=== PATIENT | male | born 1975 | race Caucasian/White ===

== ENCOUNTER 2016-11-11 15:47 | Emergency (ER) | payer MEDICARE ==
--- NOTE | 2016-11-11 17:15 | UC ---
Abdominal Pain Male HPI - HPI Summary HPI Summary: The patient comes in today for: 1. Abdominal pain: Onset: 2 hours Palliative/provocative: Laying back makes it worse. Nothing makes it better. Movement makes it worse. Quality: Ache and sometimes sharp. Region: LRQ. Severity: 7/10 Time: Comes and goes. Associated symptoms: Fevers/chills: None. Diarrhea: None. Last BM: This am--normal--no blood. Appendix: He has. Nauseated: Present. Dizzy (near syncope): * - History of Current Complaint Chief Complaint: UCAbdominalPain Stated Complaint: ABD PAIN Time Seen by Provider: 11/11/16 17:09 Hx Obtained From: Patient, Family/Drum Worker - Allergies/Home Medications Allergies/Adverse Reactions: Allergies Allergy/AdvReac Type Severity Reaction Status Date / Time No Known Allergies Allergy Verified 11/11/16 16:34 Home Medications: Home Medications Carbamazepine [Tegretol-Xr] 500 mg PO BID 11/11/16 [History Confirmed 11/11/16] Carvedilol TAB* [Coreg TAB*] 1 tab PO DAILY 11/11/16 [History Confirmed 11/11/16 ] Hydrochlorothiazide TAB* [Hydrodiuril TAB*] 20 mg PO DAILY 11/11/16 [History Confirmed 11/11/16] PMH/Surg Hx/FS Hx/Imm Hx Previously Healthy: No Endocrine History Of: Denies: Diabetes, Thyroid Disease, Hyperthyroidism, Hypothyroidism, Dyslipidemia Cardiovascular History Of: Reports: Hypertension Denies: Cardiac Disorders, Pacemaker/ICD, Myocardial Infarction, Congestive Heart Failure, Atrial Fibrillation, Deep Vein Thrombosis, Bleeding Disorders Respiratory History Of: Denies: COPD, Asthma, Bronchitis, Pneumonia, Pulmonary Embolism GI/ History Of: Denies: Gastroesophageal Reflux, Ulcer, Gastrointestinal Bleed, Gall Bladder Disease, Kidney Stones, Diverticulitis, Renal Disease, Urosepsis Neurological History Of: Reports: Seizures Denies: TIA, CVA, Dementia, Migraine Psychological History Of: Denies: Anxiety, Depression, Bipolar Disorder, Schizophrenia, Post Traumatic Stress Disorder Cancer History Of: Denies: Lung Cancer, Colorectal Cancer, Breast Cancer, Prostate Cancer, Cervical Cancer Other History Of: Negative For: HIV, Hepatitis B, Hepatitis C, Anticoagulant Therapy - Surgical History Surgical History: Yes Surgery Procedure, Year, and Place: BILATERAL FEET SURGERIES TO STRAIGHTEN OUT FEET. LEFT EAR SURGERY REMOVED EAR DRUM - Family History Known Family History: Positive: Cardiac Disease, Hypertension - Social History Occupation: Unemployed Alcohol Use: None Substance Use Type: None Smoking Status (MU): Never Smoked Tobacco Review of Systems Constitutional: Negative Skin: Negative Eyes: Negative ENT: Negative Respiratory: Negative Cardiovascular: Negative Gastrointestinal: Abdominal Pain Genitourinary: Negative All Other Systems Reviewed And Are Negative: Yes Physical Exam Triage Information Reviewed: Yes Appearance: Well-Appearing - At rest., No Pain Distress - At rest., Well- Nourished Vital Signs: Initial Vital Signs Temp 99.5 F 11/11/16 16:36 Pulse 83 11/11/16 16:36 Resp 16 11/11/16 16:36 BP 108/66 11/11/16 16:36 Pulse Ox 100 11/11/16 16:36 Vital Signs Reviewed: Yes Eyes: Positive: Conjunctiva Clear. Negative: Discharge ENT: Positive: Hearing grossly normal. Negative: Pharyngeal erythema, Nasal congestion, Nasal drainage, TM bulging, TM dull, TM red, Tonsillar swelling, Tonsillar exudate Dental: Negative: Gross Decay/Caries @, Dental Fracture @ Neck: Positive: Supple, Nontender, No Lymphadenopathy. Negative: Nuchal Rigidity Respiratory: Positive: Lungs clear, No respiratory distress, No accessory muscle use. Negative: Rhonchi, Wheezing Cardiovascular: Positive: RRR, No Murmur Abdomen Description: Positive: No Organomegaly, Guarding, McBurney's Point Tenderness, Peritoneal Signs. Negative: Nontender - He has tenderness of the LLQ and the RLQ with the worse pain in the RLQ. There is rebound and percussion tenderness. There is no psoas sign. Possible guarding? Bowel Sounds: Positive: Present Musculoskeletal: Positive: Strength Intact, ROM Intact, No Edema Neurological: Positive: Alert, Muscle Tone Normal Psychological: Positive: Age Appropriate Behavior, Consolable Skin: Negative: rashes, breakdown Abd Pain Male Course/Dx - Course Course Of Treatment: Patient and family were told that he may have appendicitis and my recommendation was to go to the ER. The patient and the family agreed. - Differential Dx/Clinical Impression Provider Diagnoses: Abdominal pain (RLQ) possible appendicitis. - Physician Notification/Consults Discussed Patient Care With: Destiny Duque Time Discussed With Above Provider: 17:33 Discharge - Discharge Plan Condition: Stable Disposition: AGAINST MEDICAL ADVICE Additional Instructions: Please go directly to the [facility].
[2016-11-11 18:01] VITALS: BP 118/90
== END 2016-11-11 17:40 | disposition left against medical advice (07) ==
LOC: UCEAST 15:47
DX: R10.31 Right lower quadrant pain (principal); I10 Essential (primary) hypertension; G40.909 Epilepsy, unspecified, not intractable, without status epilepticus
CPT/HCPCS: 99212; G0463

== ENCOUNTER 2016-11-11 18:01 | Inpatient (IN) | payer MEDICARE ==
[2016-11-11] MEDS ORDERED: Ondansetron INJ* 2 MG/ML VIAL IV ONE (20:58)
[2016-11-11] MEDS ORDERED: Morphine INJ* 4 MG/ML 1 ML SYRINGE IV ONE (20:58)
[2016-11-11] MEDS ORDERED: NS 0.9% 1000 ML* 1,000 ML IV ONE (20:58)
[2016-11-11 22:02] LABS: Hematocrit 48 % (42-52); Hemoglobin 16.1 g/dl (14.0-18.0); Mean Corpuscular HGB Conc 34 g/dl (31-36); Mean Corpuscular Hemoglobin 31 pg (27-31); Mean Corpuscular Volume 91 fL (80-94); Mean Platelet Volume 8 um3 (7.4-10.4); Red Blood Count 5.25 10^6/ul (4.0-5.4); Red Cell Distribution Width 13 % (10.5-15); White Blood Count 16.2 10^3/ul (3.5-10.8)
[2016-11-11 22:17] LABS: Albumin 4.4 g/dL (3.2-5.2); BUN/Creatinine Ratio 15.3 (8-20); C Reactive Protein 15.66 mg/L (< 5.00); Calcium 9.5 mg/dL (8.6-10.3); EGFR African American 94.4 (>60); EGFR Non-African American 73.4 (>60); Globulin 3.1 g/dL (2-4); Potassium 3.7 mmol/L (3.5-5.0); Total Bilirubin 0.8 mg/dL (0.2-1.0); Total Protein 7.5 g/dL (6.4-8.9)
[2016-11-11] MEDS ORDERED: Iohexol 300* (CONTRAST) 10 ML SDV IV ONE (22:23)
[2016-11-11 22:29] LABS: Urine Bacteria Absent (Absent); Urine Bilirubin 1+ (Negative); Urine Glucose Negative (Negative); Urine Nitrite Negative (Negative)
--- NOTE | 2016-11-12 00:20 | ED ---
Anthony Castañeda Michael, scribed for Abe Orr MD on 11/11/16 at 2059 . Abdominal Pain/Male - HPI Summary HPI Summary: 41 y/o male was referred to the ED by [facility] for intermittent episodes of RLQ pain that started at 1500 today. He describes the abd pain as aching and sharp. The pt states that the abd pain is aggravated with palpation and alleviated by nothing. The PMHx is significant for sz. The pt is prescribed Tegretol. - History of Current Complaint Chief Complaint: EDAbdPain Stated Complaint: LOWER RIGHT ABD PAIN, FEVER, COMMING FROM [facility] Time Seen by Provider: 11/11/16 20:49 Hx Obtained From: Patient, Medical Records Onset/Duration: Lasting Hours, Still Present Timing: Intermittent Severity Initially: Moderate Severity Currently: Moderate Pain Intensity: 5 Pain Scale Used: 0-10 Numeric Location: Discrete At: RLQ Radiates: No Character: Sharp, Other: - ache Aggravating Factor(s): Other: - palpation Alleviating Factor(s): Nothing Associated Signs And Symptoms: Positive: Other - abd pain - Allergies/Home Medications Allergies/Adverse Reactions: Allergies Allergy/AdvReac Type Severity Reaction Status Date / Time No Known Allergies Allergy Verified 11/11/16 16:34 PMH/Surg Hx/FS Hx/Imm Hx Endocrine/Hematology History: Denies: Hx Anticoagulant Therapy, Hx Diabetes, Hx Thyroid Disease Cardiovascular History: Reports: Hx Hypertension Denies: Hx Congestive Heart Failure, Hx Deep Vein Thrombosis, Hx Myocardial Infarction, Hx Pacemaker/ICD Respiratory History: Denies: Hx Asthma, Hx Chronic Obstructive Pulmonary Disease (COPD), Hx Lung Cancer, Hx Pneumonia, Hx Pulmonary Embolism GI History: Denies: Hx Gall Bladder Disease, Hx Gastrointestinal Bleed, Hx Ulcer, Hx Urosepsis History: Denies: Hx Kidney Stones, Hx Renal Disease Sensory History: Denies: Hx Hearing Aid Neurological History: Reports: Hx Seizures Denies: Hx Dementia, Hx Migraine, Hx Transient Ischemic Attacks (TIA) Psychiatric History: Denies: Hx Anxiety, Hx Depression, Hx Panic Disorder, Hx Schizophrenia, Hx Bipolar Disorder - Surgical History Surgery Procedure, Year, and Place: BILATERAL FEET SURGERIES TO STRAIGHTEN OUT FEET. LEFT EAR SURGERY REMOVED EAR DRUM Infectious Disease History: No Infectious Disease History: Denies: Traveled Outside the [place] in Last 30 Days - Family History Known Family History: Positive: Cardiac Disease, Hypertension - Social History Occupation: Disabled Lives: With Family Alcohol Use: None Substance Use Type: Reports: None Smoking Status (MU): Never Smoked Tobacco Review of Systems Positive: Fever Positive: Abdominal Pain All Other Systems Reviewed And Are Negative: Yes Physical Exam Triage Information Reviewed: Yes Vital Signs On Initial Exam: Initial Vitals Temp Pulse Resp BP Pulse Ox 100.5 F 101 18 108/61 100 11/11/16 18:06 11/11/16 18:06 11/11/16 18:06 11/11/16 18:06 11/11/16 18:06 Vital Signs Reviewed: Yes Appearance: Positive: Well-Appearing, Pain Distress - moderate discomfort Skin: Positive: Warm Head/Face: Positive: Normal Head/Face Inspection Eyes: Positive: Normal ENT: Positive: Hearing grossly normal Neck: Positive: Supple Respiratory/Lung Sounds: Positive: Breath Sounds Present Cardiovascular: Positive: RRR Abdomen Description: Positive: Soft, Guarding, McBurney's Point Tenderness Bowel Sounds: Positive: Present Musculoskeletal: Positive: Strength/ROM Intact Neurological: Positive: Sensory/Motor Intact, Alert, Oriented to Person Place, Time Diagnostics - Vital Signs Vital Signs Temp Pulse Resp BP Pulse Ox 11/11/16 19:10 97.0 F 80 16 102/69 98 11/11/16 18:06 100.5 F 101 18 108/61 100 - Laboratory Lab Results: Lab Results 11/11/16 11/11/16 11/11/16 Range/Units 21:55 21:55 21:55 WBC 16.2 H (3.5-10.8) 10^3/ul RBC 5.25 (4.0-5.4) 10^6/ul Hgb 16.1 (14.0-18.0) g/dl Hct 48 (42-52) % MCV 91 (80-94) fL MCH 31 (27-31) pg MCHC 34 (31-36) g/dl RDW 13 (10.5-15) % Plt Count 202 (150-450) 10^3/ul MPV 8 (7.4-10.4) um3 Neut % (Auto) 86.0 H (38-83) % Lymph % (Auto) 5.2 L (25-47) % [place] % (Auto) 8.4 (1-9) % Eos % (Auto) 0 (0-6) % Baso % (Auto) 0.4 (0-2) % Absolute Neuts (auto) 14.0 H (1.5-7.7) 10^3/ul Absolute Lymphs (auto) 0.8 L (1.0-4.8) 10^3/ul Absolute Monos (auto) 1.4 H (0-0.8) 10^3/ul Absolute Eos (auto) 0 (0-0.6) 10^3/ul Absolute Basos (auto) 0.1 (0-0.2) 10^3/ul Absolute Nucleated RBC 0.01 10^3/ul Nucleated RBC % 0 Sodium 137 (133-145) mmol/L Potassium 3.7 (3.5-5.0) mmol/L Chloride 102 (101-111) mmol/L Carbon Dioxide 24 (22-32) mmol/L Anion Gap 11 (2-11) mmol/L BUN 17 (6-24) mg/dL Creatinine 1.11 (0.67-1.17) mg/dL Est GFR ( Amer) 94.4 (>60) Est GFR (Non-Af Amer) 73.4 (>60) BUN/Creatinine Ratio 15.3 (8-20) Glucose 148 H (70-100) mg/dL Lactic Acid 3.3 H* (0.5-2.0) mmol/L Calcium 9.5 (8.6-10.3) mg/dL Total Bilirubin 0.80 (0.2-1.0) mg/dL AST 17 (13-39) U/L ALT 22 (7-52) U/L Alkaline Phosphatase 76 (34-104) U/L C-Reactive Protein 15.66 H (< 5.00) mg/L Total Protein 7.5 (6.4-8.9) g/dL Albumin 4.4 (3.2-5.2) g/dL Globulin 3.1 (2-4) g/dL Albumin/Globulin Ratio 1.4 (1-3) Lipase 14 (11.0-82.0) U/L Urine Color Urine Appearance Urine pH (5-9) Ur Specific [place] (1.010-1.030) Urine Protein (Negative) Urine Ketones (Negative) Urine Blood (Negative) Urine Nitrate (Negative) Urine Bilirubin (Negative) Urine Urobilinogen (Negative) Ur Leukocyte Esterase (Negative) Urine WBC (Auto) (Absent) Urine RBC (Auto) (Absent) Ur Squamous Epith Cells (Absent) Urine Bacteria (Absent) Urine Glucose (Negative) 11/11/16 Range/Units 22:15 WBC (3.5-10.8) 10^3/ul RBC (4.0-5.4) 10^6/ul Hgb (14.0-18.0) g/dl Hct (42-52) % MCV (80-94) fL MCH (27-31) pg MCHC (31-36) g/dl RDW (10.5-15) % Plt Count (150-450) 10^3/ul MPV (7.4-10.4) um3 Neut % (Auto) (38-83) % Lymph % (Auto) (25-47) % [place] % (Auto) (1-9) % Eos % (Auto) (0-6) % Baso % (Auto) (0-2) % Absolute Neuts (auto) (1.5-7.7) 10^3/ul Absolute Lymphs (auto) (1.0-4.8) 10^3/ul Absolute Monos (auto) (0-0.8) 10^3/ul Absolute Eos (auto) (0-0.6) 10^3/ul Absolute Basos (auto) (0-0.2) 10^3/ul Absolute Nucleated RBC 10^3/ul Nucleated RBC % Sodium (133-145) mmol/L Potassium (3.5-5.0) mmol/L Chloride (101-111) mmol/L Carbon Dioxide (22-32) mmol/L Anion Gap (2-11) mmol/L BUN (6-24) mg/dL Creatinine (0.67-1.17) mg/dL Est GFR ( Amer) (>60) Est GFR (Non-Af Amer) (>60) BUN/Creatinine Ratio (8-20) Glucose (70-100) mg/dL Lactic Acid (0.5-2.0) mmol/L Calcium (8.6-10.3) mg/dL Total Bilirubin (0.2-1.0) mg/dL AST (13-39) U/L ALT (7-52) U/L Alkaline Phosphatase (34-104) U/L C-Reactive Protein (< 5.00) mg/L Total Protein (6.4-8.9) g/dL Albumin (3.2-5.2) g/dL Globulin (2-4) g/dL Albumin/Globulin Ratio (1-3) Lipase (11.0-82.0) U/L Urine Color [place] Urine Appearance Cloudy Urine pH 5.0 (5-9) Ur Specific [place] 1.028 (1.010-1.030) Urine Protein 1+(30 mg/dl) H (Negative) Urine Ketones Negative (Negative) Urine Blood Negative (Negative) Urine Nitrate Negative (Negative) Urine Bilirubin 1+ (Negative) Urine Urobilinogen Positive H (Negative) Ur Leukocyte Esterase Negative (Negative) Urine WBC (Auto) Trace(0-5/hpf) (Absent) Urine RBC (Auto) 1+(3-5/hpf) H (Absent) Ur Squamous Epith Cells Present H (Absent) Urine Bacteria Absent (Absent) Urine Glucose Negative (Negative) Result Diagrams: 11/11/16 21:55 11/11/16 21:55 Lab Statement: Any lab studies that have been ordered have been reviewed, and results considered in the medical decision making process. - CT CT ABD/PEL CT Interpretation: Positive (See Comments) - 11 mm diameter thick-walled appendix with periappendiceal fat inflammation, compatible with acute appendicitis. Small complex free fluid lower pelvis, probablyinflammatory. No abscess or free air. Cortical scarring lower poles bilateral kidneys and small calcification on left. Gastroesophageal reflux. CT Interpretation Completed By: Radiologist Abdominal Pain Fem Course/Dx - Course Course Of Treatment: Discussed patient care with Dr. Jordan (Surgery) at [address] ABD/PEL results. Dr. Jordan accepts the patient as an admission. - Diagnoses Provider Diagnoses: Acute appendicitis Discharge - Discharge Plan Condition: Fair Disposition: ADMITTED TO [facility] documentation as recorded by the Anthony cisneros Michael accurately reflects the service I personally performed and the decisions made by me, Abe Orr MD.
[2016-11-12] MEDS ORDERED: NS 0.9% 1000 ML* 1,000 ML IV ONE ×2 (01:14→01:15)
[2016-11-12] MEDS: Acetaminophen TAB* 325 MG PO PRN (01:26)
[2016-11-12] MEDS ORDERED: Piperac/Tazob 3.375 gm in NS* 3.375 GM/100 ML BAG IVPB SCH ×2 (01:30→02:00)
[2016-11-12] MEDS ORDERED: ZOSYN 3.375 GM ONE TIME DOSE-OVER 30 MINUTES IVPB (02:00)
[2016-11-12] MEDS: HYDROmorphone* 1 MG/ML 1 ML SYR IV PRN ×2 (03:04→11:06)
[2016-11-12] MEDS: NS 0.9% 1000 ML* 1,000 ML IV SCH ×3 (03:26→20:52)
[2016-11-12] MEDS ORDERED: Bupivacaine 0.25% EPI 200,000* 30 ML SDV ONE (05:38)
[2016-11-12] MEDS: Piperac/Tazob 3.375 gm in NS* 3.375 GM/100 ML BAG IVPB SCH ×3 (05:51→22:11)
[2016-11-12] MEDS ORDERED: fentaNYL* 50 MCG/ML 2 ML VIAL (100 MCG VIAL) ONE (05:55)
[2016-11-12] MEDS ORDERED: Midazolam* 1 MG/ML 2 ML VIAL (2 MG) ONE (05:55)
[2016-11-12] MEDS ORDERED: KETAMINE HCL* 50 MG/ML 10 ML VIAL ONE (05:55)
[2016-11-12] MEDS ORDERED: carBAMazepine ER TAB(*) 100 MG PO ONE (06:00)
[2016-11-12] MEDS ORDERED: Ondansetron INJ* 2 MG/ML VIAL ONE (06:36)
[2016-11-12] MEDS ORDERED: Dexamethasone IV* 4 MG/ML 1 ML (4 MG) ONE (06:36)
[2016-11-12] MEDS ORDERED: Rocuronium* 10 MG/ML VIAL ONE (06:36)
[2016-11-12] MEDS ORDERED: Ketorolac INJ* 30 MG/ML 1 ML VIAL ONE (06:36)
[2016-11-12] MEDS ORDERED: Glycopyrrolate IV* 0.2 MG/ML 1 ML VIAL ONE (07:07)
[2016-11-12] MEDS ORDERED: Neostigmine Methylsulfate* 2 MG/2 ML SYRINGE ONE (07:07)
--- NOTE | 2016-11-12 07:50 | RAD ---
CLINICAL HISTORY: Right lower quadrant pain COMPARISON: None TECHNIQUE: Contrast enhanced CT examination of the abdomen and pelvis from the lung bases through the initial tuberosities. The patient received 97 mL Omnipaque 300 intravenously prior to imaging.The patient received oral contrast as well prior to imaging. FINDINGS: VISUALIZED LUNG BASES: There are bibasilar hypoventilatory changes. There is no pleural effusion. ABDOMEN AND PELVIS: The liver, spleen, pancreas and adrenal glands are grossly normal in appearance. The gallbladder is normal. The kidneys are normal in appearance without focal mass, calcification or signs of hydronephrosis. Total contrast has progressed as far as the midportion small bowel. The small and large bowel are not distended. The appendix measures 11 mm in diameter. There is moderate periappendiceal inflammatory change including stranding of the surrounding mesenteric fat. There is no free air or drainable fluid collection. There is no gross retroperitoneal or mesenteric lymphadenopathy. The pelvic viscera is normal in appearance. There is trace ascites in the dependent portion of the pelvis The abdominal aorta and iliac arteries are normal in course and diameter. Degenerative changes include multilevel loss of intervertebral disc height involving the lower thoracic and lumbar spine.There are no sinister bone lesions. IMPRESSION: CT findings are compatible with acute appendicitis.
--- NOTE | 2016-11-12 07:54 | SURGPN ---
Brief Operative Note - Surgery Procedures: Procedures ) OPERATIVE REPORT PRE-OP: Acute appendicitis POST-OP: Acute perforated appendicitis with purulent peritonitis PROCEDURE: laparoscopic appendectomy SURGEON: MD Julian ANESTHESIA: General with Dr. Fu ASST: none IVF: 1.5 l crystalloid EBL: min SPECIMEN: appendix DRAIN: #10 [place] WOUND CLASS: 4 COMPLICATIONS: none TO PACU
[2016-11-12] MEDS ORDERED: HYDROmorphone* 1 MG/ML 1 ML SYR IV PRN (08:09)
[2016-11-12] MEDS ORDERED: DiMENhydriNATE IV* 50 MG/ML VIAL IV PUSH PRN (08:09)
[2016-11-12] MEDS ORDERED: fentaNYL* 50 MCG/ML 2 ML VIAL (100 MCG VIAL) IV PRN (08:09)
--- NOTE | 2016-11-12 08:41 | HP ---
HISTORY AND PHYSICAL DATE OF ADMISSION: 11/12/16 CHIEF COMPLAINT: Right lower quadrant abdominal pain. HISTORY OF PRESENT ILLNESS: Mr. Rodrigue Torres is a 41-year-old gentleman who, yesterday during the day, developed some generalized abdominal discomfort that became quite severe in the right lower quadrant after several hours. He initially presented to the urgent care center. He was referred to the emergency room here at [facility] with concern for acute appendicitis. He have been anorexic after his discomfort started, although he did eat a normal lunch. He had no diarrhea, slight nausea, but no vomiting. He had had no fevers, shakes, or chills. When seen in the emergency room, he did have a mildly elevated heart rate and temperature. He was noted to have tenderness in the right side of the abdomen. White blood cell count returned at 16,000 and he had an elevated lactic acid 3.3 with C-reactive protein at 15.66. Remainder of his chemistry labs were unremarkable. He underwent a CT scan of the abdomen and pelvis. I did review these images. It shows a thickened, distended appendix over a centimeter with some periappendiceal fat inflammation, all consistent with acute appendicitis. There was some free intra-abdominal fluid. There was no evidence of extraluminal air or abscess to suggest perforation. He was admitted to the surgical service with plan for appendectomy. PAST MEDICAL HISTORY: 1. Seizure disorder. 2. Hypertension. PAST SURGICAL HISTORY: Lower extremity ankle and foot surgery. ALLERGIES: He has no known drug allergies. SOCIAL HISTORY: He lives with his significant other. He does not use tobacco or alcohol. He works part-time in a local [employer]. REVIEW OF SYSTEMS: Cerebrovascular: There is no dizziness or visual disturbances. Cardiovascular: No chest pain or shortness of breath. Neurologic : He does have a seizure disorder followed by Dr. Brown. His last seizure was 18 years ago. : No urgency or hematuria. GI: No chronic abdominal discomfort. PHYSICAL EXAMINATION GENERAL: A well-developed, well-nourished, but slender male who appears to be in no apparent distress. He is awake, alert and conversive. VITAL SIGNS: Temperature 99.6, pulse 118, blood pressure 103/69. HEENT: Sclerae is anicteric. Trachea was midline. Oral mucosa was slightly dry. LUNGS: Clear to auscultation with normal respiratory effort. HEART: Without regular rate and rhythm without murmurs, rubs, or gallops. ABDOMEN: Soft and distended, and somewhat firm and tympanitic. No prior surgical incision. Diminished bowel sounds throughout. There is no hernia noted. He has tenderness in the right lower quadrant with localized rebound and guarding, distal peritoneal irritation. PSYCHIATRIC: He is awake, alert and oriented x3. He appears to have normal judgment and insight. IMPRESSION: Acute appendicitis. PLAN: Laparoscopic appendectomy today. I discussed the findings of his history and physical exam, CT scan, laboratory workup, and treatment of acute appendicitis. I do recommend that we proceed with an operative intervention, although we did discuss nonoperative management with IV antibiotics and prolonged hospital stay with the understanding that this may not be efficacious. It is not recommended here in the [place] at this time. We have agreed to proceed with the surgical appendectomy. The procedure was discussed and the risks are but not limited to bleeding, infection, intra-abdominal abscess formation, injury to peritoneal and retroperitoneal structures, the possibility of an open procedure, risks of general anesthesia, increased risk of seizures in the perianesthetic procedure were discussed, hospital stay recovery times were all explained. He will receive his antiseizure medicine just prior to surgery today on schedule , although he did miss one dose in the emergency room yesterday, and we will proceed today. CC: [facility]; Dr. Chandu Dumont * Dr. Mona Brown, Neurology [id number]/[facility] #: [id number] MTDD
[2016-11-12] MEDS: Pantoprazole IV* 40 MG IV SCH (09:41)
[2016-11-12] MEDS: Carvedilol TAB* 6.25 MG PO SCH (09:42)
[2016-11-12] MEDS: Ketorolac INJ* 30 MG/ML 1 ML VIAL IV PUSH PRN ×2 (10:16→19:16)
[2016-11-12] MEDS: Ondansetron INJ* 2 MG/ML VIAL IV PRN (10:17)
[2016-11-12 11:29] LABS: Hematocrit 43 % (42-52); Hemoglobin 14.3 g/dl (14.0-18.0); Mean Corpuscular HGB Conc 33 g/dl (31-36); Mean Corpuscular Hemoglobin 31 pg (27-31); Mean Corpuscular Volume 92 fL (80-94); Mean Platelet Volume 8 um3 (7.4-10.4); Red Blood Count 4.69 10^6/ul (4.0-5.4); Red Cell Distribution Width 14 % (10.5-15); White Blood Count 12.1 10^3/ul (3.5-10.8)
[2016-11-12 11:45] LABS: BUN/Creatinine Ratio 12.5 (8-20); EGFR African American 93.4 (>60); EGFR Non-African American 72.6 (>60); Potassium 3.8 mmol/L (3.5-5.0)
[2016-11-12] MEDS: Heparin VIAL(*) 5000 UNITS/ML VIAL (FIVE THOUSAND) SUBCUT SCH ×2 (13:29→22:09)
[2016-11-12] MEDS: carBAMazepine ER TAB(*) 100 MG PO SCH (20:56)
--- NOTE | 2016-11-12 23:23 | OP ---
DATE OF OPERATION: 11/12/16 - ROOM #334 DATE OF : 77 SURGEON: Elpidio Jordan MD GAUGE MACHINE OPERATOR: None. ANESTHESIOLOGIST: Dr. Fu. ANESTHESIA: General with local. PRE-OP DIAGNOSIS: Acute appendicitis. POST-OP DIAGNOSIS: Acute suppurative appendicitis with perforation and purulent peritonitis. OPERATIVE PROCEDURE: Laparoscopic appendectomy. ESTIMATED BLOOD LOSS: Minimal. SPECIMEN: Appendix. WOUND CLASSIFICATION: IV. DRAINS: #10 [place] drain in right lower quadrant. COMPLICATIONS: None. DESCRIPTION OF PROCEDURE: Written informed consent was obtained, the abdomen was marked with indelible ink and preoperative antibiotics were administered. The patient was taken to the operating room, placed in the supine position. Sequential compression devices and warming blanket were applied. General anesthesia was administered and the abdomen was prepped and draped in the usual sterile fashion. Time-out verification was completed. Initially, a small transverse incision was made just above the umbilicus and the peritoneal cavity was entered under direct vision and a 12-mm blunt port was inserted into the abdominal cavity and it was insufflated to 15 mmHg. It was obvious upon placing this port that there was pus in all 4 quadrants of the abdomen with inflammation of the peritoneum and several loops of small bowel in the right lower quadrant, they were adherent to each other as well as the anterior abdominal wall and the underlying cecum. A 5-mm port was placed in the suprapubic position, a second 5-mm port was placed in the left lower abdominal wall. With care, the abdomen was irrigated in all 4 quadrants with copious amounts of saline. I was able to peel the inflamed loops of small bowel off the right lower quadrant and break up some fibrinous adhesions. I was able to identify the appendix and the lateral gutter where the distal half was acutely suppuratively inflamed and when I grasped the tip of the appendix and brought up into view, there was a pocket of pus, which was not a true abscess, but it had been walled off by the fat of the terminal ileum and this was suctioned. I noted no hole in the appendix but it was apparent that perforation had occured. I noted no appendicoliths within the lumen. The distal half of the appendix was quite friable. Mesoappendix was also edematous. This was the obvious source of the peritonitis. The mesoappendix was then taken sequentially from distal to proximal and fortunately, the proximal third of the appendix appeared to be of normal caliber without evidence of acute inflammation and I followed this down to the cecal base. There were some lateral peritoneal attachments, which I divided to improve exposure at this point and I used a trejo load of a 45- mm stapler to divide the appendix and the base of the cecum which also was normal, and placed this in an Endo Catch bag and brought it out through the umbilical incision. The staple line was intact without evidence of bleeding. Hemostasis was assured in the right lower quadrant. There was still turbid fluid in the pelvis and I used copious amounts of saline to irrigate this area and separate the bowel loops especially in the terminal ileum area. Due to the amount of fluid left behind, I did place a #10 [place] drain through a separate stab wound in the right lower quadrant, placed this into the right lower quadrant extending down in the pelvis internally. This was sutured to the skin with 3-0 Prolene suture. Once I had aspirated as much of the irrigation fluid as possible, all ports removed under direct vision of the camera. The umbilical fascia was closed with interrupted 0 Polysorb suture. The skin at all 3 incisions was approximated with subcuticular 4-0 Polysorb suture. Steri-Strips and sterile dressings were applied. The patient tolerated the procedure well and was taken to the recovery room in stable condition. CC: [facility]; Ze Andrea* [id number]/[facility] #: [id number] [facility]ITAL[facility]
[2016-11-13] MEDS: Acetaminophen TAB* 325 MG PO PRN (00:44)
[2016-11-13] MEDS: Ondansetron INJ* 2 MG/ML VIAL IV PRN ×2 (01:49→05:47)
[2016-11-13] MEDS ORDERED: PROCHLORPERAZINE INJ 5 MG/ML 2 ML VIAL IV PRN (03:18)
[2016-11-13] MEDS: Heparin VIAL(*) 5000 UNITS/ML VIAL (FIVE THOUSAND) SUBCUT SCH ×3 (05:45→22:22)
[2016-11-13] MEDS: Piperac/Tazob 3.375 gm in NS* 3.375 GM/100 ML BAG IVPB SCH ×3 (05:54→22:46)
[2016-11-13] MEDS: HYDROmorphone* 1 MG/ML 1 ML SYR IV PRN (07:31)
[2016-11-13] MEDS: Ketorolac INJ* 30 MG/ML 1 ML VIAL IV PUSH PRN (07:32)
--- NOTE | 2016-11-13 08:06 | RAD ---
INDICATION: Dyspnea COMPARISON: CT abdomen pelvis dated November 11, 2016 that includes imaging of the lung bases. TECHNIQUE: Single AP portable view of the chest was obtained. FINDINGS: Image quality is compromised due to the relative inferiority of a portable chest x-ray. A gastric tube is seen with the tip terminating overlying the gastric fundus below the diaphragm. Poor inspiratory effort yields the appearance of low lung volumes. There is linear density at the right lung base contiguous with density obscuring the right lung base and right hemidiaphragm. To a lesser extent there is density obscuring the lateral left hemidiaphragm and causing left costophrenic angle blunting. More superiorly the lungs appear adequately aerated. IMPRESSION: 1. Appropriately positioned gastric tube in the AP projection. 2. Right greater than left lung base density and costophrenic angle blunting could be due to consolidation (atelectasis if the patient is postsurgical) and/or pleural effusion.
--- NOTE | 2016-11-13 08:21 | PN ---
Progress Note - Progress Note SOAP: Subjective: Developed nausea and vomiting last night, NGT inserted-anxious after insertion but feeling better now in chair. Developed some tachycardia and tachypnea after NGT placement, now improving. He is having minimal pain Urinating without problem No CP or SOB Objective: Temp Pulse Resp BP Pulse Ox 98.9 F 117 20 134/75 94 11/13/16 07:10 11/13/16 07:10 11/13/16 08:05 11/13/16 07:10 11/13/16 08:05 Intake & Output 11/11/16 11/12/16 11/13/16 11/14/16 06:59 06:59 06:59 06:59 Intake Total 2104 3637 Output Total 150 1605 Balance 1954 2031 Weight 160 lb Intake: IV Fluids 2104 2327 ABX - PIPERACILLIN 105 ABX - ZOSYN 255 Compazine 50 LR 550 NS 500 NS (0.9%) 972 Oral 0 1310 Output: NG Tube Drainage Amount 300 KY #1 230 Urine 150 625 Emesis 450 PEX Comfortable-awake and alert Lungs are CTA with decreased bowel sounds in the bases-no wheezing or rales/ rhonchi Cor is RRR Abd is soft and distended. Tympany throughout. Incisions are CDI. KY in place with small amount of serosanguinous fluid in bulb. Bowel sounds are present throughout and are hyperactive. Ext without edema Labs are pending. CXR reviewed--basilar atelectasis Assessmen POD#2 lap appy for perforated appendicitis Ileus with N/V Plan: NGT in place Continue IVF Subq heparin/PPI/ IV antibiotics Check labs Follow tachycardia for now-suspect that this related to NGT placement and vomiting.
[2016-11-13 08:26] LABS: Hematocrit 39 % (42-52); Hemoglobin 13.2 g/dl (14.0-18.0); Mean Corpuscular HGB Conc 34 g/dl (31-36); Mean Corpuscular Hemoglobin 31 pg (27-31); Mean Corpuscular Volume 92 fL (80-94); Mean Platelet Volume 8 um3 (7.4-10.4); Red Blood Count 4.19 10^6/ul (4.0-5.4); Red Cell Distribution Width 13 % (10.5-15); White Blood Count 7.2 10^3/ul (3.5-10.8)
[2016-11-13 08:44] LABS: Albumin 3.1 g/dL (3.2-5.2); BUN/Creatinine Ratio 15.2 (8-20); Calcium 8.1 mg/dL (8.6-10.3); EGFR African American 107.7 (>60); EGFR Non-African American 83.7 (>60); Globulin 2.8 g/dL (2-4); Potassium 3.4 mmol/L (3.5-5.0); Total Bilirubin 0.8 mg/dL (0.2-1.0); Total Protein 5.9 g/dL (6.4-8.9)
[2016-11-13] MEDS ORDERED: Metoprolol Tartrate IV* 1 MG/ML 5 ML VIAL ONE (09:54)
[2016-11-13] MEDS: Metoprolol Tartrate IV* 1 MG/ML 5 ML VIAL IV SCH ×3 (09:58→22:19)
[2016-11-13] MEDS: Pantoprazole IV* 40 MG IV SCH (09:58)
[2016-11-13] MEDS: Carvedilol TAB* 6.25 MG PO SCH (09:59)
[2016-11-13] MEDS: carBAMazepine ER TAB(*) 100 MG PO SCH (10:34)
[2016-11-13] MEDS: levETIRAcetam 500 MG IVPREMIX* 500 MG/100 ML BAG IV SCH ×2 (11:31→22:24)
[2016-11-13] MEDS: NS 0.9% 1000 ML* 1,000 ML IV SCH ×2 (13:09→19:29)
[2016-11-13] MEDS ORDERED: Furosemide IV* 10 MG/ML 2 ML VIAL (20 MG) IV SLOW PU ONE (16:15)
[2016-11-13] MEDS ORDERED: Furosemide IV* 10 MG/ML 2 ML VIAL (20 MG) ONE (16:24)
[2016-11-14] MEDS: NS 0.9% 1000 ML* 1,000 ML IV SCH ×3 (01:45→23:20)
[2016-11-14] MEDS: Metoprolol Tartrate IV* 1 MG/ML 5 ML VIAL IV SCH ×3 (04:13→16:54)
[2016-11-14] MEDS: Piperac/Tazob 3.375 gm in NS* 3.375 GM/100 ML BAG IVPB SCH ×3 (05:40→21:38)
[2016-11-14] MEDS: Heparin VIAL(*) 5000 UNITS/ML VIAL (FIVE THOUSAND) SUBCUT SCH ×3 (05:41→21:37)
--- NOTE | 2016-11-14 07:46 | PN ---
Progress Note - Progress Note SOAP: Subjective: Feels much better Had 2 loose BM's last night and is passing flatus Minimal abdominal pain, no SOB or CP Wants something to drink Excellent response to lasix yesterday Objective: Tmax 100.1 Temp Pulse Resp BP Pulse Ox 99.0 F 113 32 137/82 92 11/14/16 03:24 11/14/16 03:24 11/14/16 03:24 11/14/16 03:24 11/14/16 03:24 Intake & Output 11/12/16 11/13/16 11/14/16 11/15/16 06:59 06:59 06:59 06:59 Intake Total 2105 3637 3205 Output Total 150 1605 2063 Balance 1954 2031 114 Weight 160 lb Intake: IV Fluids 2105 2327 3110 ABX - PIPERACILLIN 105 ABX - ZOSYN 255 213 Compazine 50 Keppra 105 LR 550 NS 500 NS (0.9%) 972 2792 Medicated IV 95 Keppra 95 Oral 0 1310 0 Output: NG Tube Drainage Amount 300 175 KY #1 230 88 Urine 818 880 1073 Emesis 450 Other: Estimated Void Medium Date of Last Bowel 11/14/16 Movement # Bowel Movements 1 Estimated Stool Amount Medium # Voids 1 PEX: Comfortable Lungs are CTA with decreased breath sounds in the bases. No rales or rhonchi Cor is RRR-slightly rapid Abd is softer and much less distended. Bowel sounds are present and are hyperactive but not high pitched. Incisions are clean and dry, KY with scant amount of serous fluid in bulb, some leakage around site. Extremities without edema Labs are pending Assessment: POD # 3 s/p laparoscopic appendectomy for acute perforated appendicitis Tachycardia secondary to above Post-op ileus--resolving Seizure disorder HTN Plan: D/C NGT and start po Check labs--may need K+repletement after lasix D/C KY in next 24 hours PPI/sub q heparin IV antibiotics IV lopressor and Keppra Increase activity.
[2016-11-14 08:49] LABS: Calcium 7.9 mg/dL (8.6-10.3); Magnesium 1.7 mg/dL (1.9-2.7); Phosphorus 1.5 mg/dL (2.5-5.0)
[2016-11-14] MEDS: Pantoprazole IV* 40 MG IV SCH (09:38)
[2016-11-14] MEDS: levETIRAcetam 500 MG IVPREMIX* 500 MG/100 ML BAG IV SCH ×2 (10:37→23:14)
[2016-11-14] MEDS ORDERED: KCL 10 MEQ/50 ML IVPREMIX* 10 MEQ/50 ML BAG IV ONE (11:40)
[2016-11-14] MEDS: KCL 10 MEQ/50 ML IVPREMIX* 10 MEQ/50 ML BAG IV SCH ×2 (13:41→18:04)
[2016-11-14] MEDS ORDERED: Potassium Acid Phosphate TAB* 500 MG PO ONE (14:03)
[2016-11-14] MEDS ORDERED: Magnesium Sulfate 2 GM IV* 2 GM/50 ML BAG IVPB ONE (14:04)
[2016-11-14 14:16] LABS: Potassium 3.3 mmol/L (3.5-5.0)
[2016-11-14 15:27] LABS: TSH (Thyroid Stimulating Horm) 0.7 mcIU/mL (0.34-5.60)
--- NOTE | 2016-11-14 16:09 | RAD ---
HISTORY: Atelectasis versus pneumonia COMPARISONS: November 13, 2016 VIEWS: 2: Frontal and lateral views of the chest. FINDINGS: CARDIOMEDIASTINAL SILHOUETTE: The cardiomediastinal silhouette is normal. HAWA: The hawa are normal. PLEURA: The costophrenic angles are sharp. No pleural abnormalities are noted. LUNG PARENCHYMA: There is persistent confluent alveolar opacities in lung bases bilaterally, greater on the left on the right ABDOMEN: The upper abdomen is clear. There is no subphrenic gas. BONES AND SOFT TISSUES: No bone or soft tissue abnormalities are noted. OTHER: None. IMPRESSION: PERSISTENT BIBASILAR ATELECTASIS VERSUS CONSOLIDATION WITH SOME IMPROVED AERATION OF THE RIGHT COMPARED TO THE PREVIOUS EXAMINATION.
[2016-11-14 17:04] LABS: BUN/Creatinine Ratio 14.4 (8-20); EGFR African American 101.7 (>60); EGFR Non-African American 79.1 (>60)
--- NOTE | 2016-11-14 17:39 | CONS ---
MEDICAL CONSULTATION REPORT: DATE OF CONSULT: 11/14/16 PRIMARY CARE PROVIDER: Dr. Dumont. REQUESTING PROVIDER: Elpidio Jordan MD. CONSULTING PROVIDER: BENNIE Hendricks SUPERVISING PHYSICIAN: Rebecca Gutierrez DO. (DICTATED BY BENNIE HENDRICKS) CHIEF COMPLAINT: Status post appendectomy with persistent tachycardia. HISTORY OF PRESENT ILLNESS: This is a 41-year-old gentleman with history of cerebral palsy, seizure disorder, and hypertension who presented to the hospital with acute appendicitis. He underwent appendectomy with Dr. Jordan , which demonstrated a perforated appendix with associated peritonitis. The patient has been persistently tachycardic since the time of surgery. It looks like heart rates have been approximately 100 to 110 beats per minute on average and the patient has been normotensive. The patient is currently receiving IV fluids and Zosyn. Review of recent labs reveals improving white blood cell count. The patient has been afebrile essentially since the time of admission. Hospitalist group was consulted due to the concern of his persistent tachycardia. Upon evaluation today, the patient reports that his abdominal pain is improving. He does have pain with deep inspiration and cough and reports that he has been having a significant difficulty with congestion. He denies dyspnea per se or associated chest pain. He feels that his mucus is quite thick and he is unable to get it out. He is hesitant to have a real deep or forcible cough due to his abdominal pain. The patient is treated with carvedilol and hydrochlorothiazide for his hypertension. He is now taking p.o. again, but has been n.p.o. for the last couple of days and was being treated with p.r.n. IV Lopressor to replace his carvedilol. Prior to the time of admission, the patient states that he was feeling quite well. His symptoms of abdominal pain had a rather sudden onset. No recent respiratory infections or other respiratory complaints. He has no history of chronic pulmonary disease. PAST MEDICAL HISTORY: 1. Seizure disorder. 2. Hypertension. 3. Cerebral palsy. CURRENT MEDICATIONS: 1. Dilaudid 1 mg IV q.1 h. as needed for pain. 2. Heparin 5000 units subcu q.8 h. 3. Keppra 500 mg q.12 h. 4. Toradol 30 mg IV q.6 h. as needed for pain. 5. Metoprolol tartrate 5 mg IV q.6 h. as needed for tachycardia. 6. Normal saline at a rate of 75 mL per hour. 7. Zofran 4 mg IV q.4 h. as needed for nausea and vomiting. 8. Potassium chloride 10 mEq IV x2. 9. IV Protonix 40 mg daily. 10. Zosyn 3.375 g IV q.8 h. 11. Compazine 10 mg IV q.6 h. as needed for nausea. HOME MEDICATIONS: 1. Tegretol 500 mg p.o. twice daily. 2. Carvedilol 6.25 mg p.o. twice daily. 3. Hydrochlorothiazide 20 mg p.o. daily. SOCIAL HISTORY: The patient lives with his partner. He denies any smoking history. No regular alcohol consumption. No illicit drug use. REVIEW OF SYSTEMS: As listed above in HPI. PHYSICAL EXAM: Most recent vitals: Temperature 99.8 degrees Fahrenheit, pulse 114 beats per minute, respiratory rate 18 per minute, oxygen saturation 97% on room air, blood pressure 133/97 mmHg. General: This is a well-appearing middle aged gentleman accompanied by his partner and mother in no acute distress. HEENT: Head is normocephalic, atraumatic. Mucous membranes are pink and moist. Cardiovascular: Heart has a regular rate and rhythm. Mildly tachycardic without murmurs, rubs, or gallops. Respiratory: The patient has an occasional productive cough. He has significant crackles appreciated in posterior lung hough. Abdomen: Mildly distended but soft with bowel sounds present and some mild tenderness to palpation. Extremities: No significant edema appreciated. Skin: Limited exam shows no concerning rashes or lesions. Neuro: The patient is alert and appropriately oriented. The patient has a slurred speech which appears to be chronic for him and some contraction of the left upper extremity, again chronic, likely related to his cerebral palsy. DIAGNOSTIC STUDIES/LAB DATA: Initial CBC from the time of admission, 11/11/16, shows a white blood cell count of 16,200. Most recent labs from 11/13/16 shows resolution of leukocytosis with white blood cell count of 7200. CBC has been otherwise unremarkable. Chemistries from today shows a potassium of 3.3 mmol/L, calcium of 7.9, phos of 1.5, magnesium of 1.7. IMAGING: Chest x-ray from 11/13/16 shows bilateral lung base consolidation questionable for atelectasis versus pneumonia. EKG shows sinus tachycardia with a rate of about 110 beats per minute. ASSESSMENT AND PLAN: This is a 41-year-old gentleman postop day #2 following appendectomy and washout procedure secondary to perforated appendix and associated peritonitis with persistent tachycardia. Hospitalist group has been consulted in regards to concern of his tachycardia. 1. Peritonitis secondary to perforated appendix, status post appendectomy, postop day #2 - the patient is being appropriately treated with Zosyn with improvement in his abdominal pain and leukocytosis and has been afebrile for approximately 48 hours. Maximum temperature in the last 24 hours was 100.1 degrees Fahrenheit overnight to last night. 2. Tachycardia - EKG demonstrates a sinus rhythm. The patient has persistent sinus tachycardia since the time of admission. This is likely multifactorial due to discontinuation of his beta-mary carmen. He has been receiving p.r.n. IV Lopressor, but the dosing has been infrequent and this is the short-acting medication which can also lead to some rebound tachycardia. In addition, the patient is still having some postoperative pain which could certainly be causing persistent sinus tachycardia and significant infection which seems to be resolving, but is also responsible for sinus tachycardia. 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 In terms of recommendations is, since he is now taking orals, I would recommend restarting his carvedilol, continuing to treat his peritonitis with Zosyn. We will also obtain a chest x-ray as a comparison to yesterday's due to the significant crackles appreciated on lung exam. Zosyn would appropriately cover most respiratory pathogens in addition to abdominal pathogens with the exception of atypicals. If the pattern of consolidation appreciated on chest x-ray appears to be convincing for a pneumonia, I would recommend adding azithromycin or doxycycline for additional atypical coverage in addition to the Zosyn. Also recommend continuing to replace potassium as has been done. Also recommend replacing magnesium and phosphorus and repeating basic metabolic panel tomorrow. Also checking a TSH, although I think it is unlikely that hyperthyroidism is contributing to this acute presentation. 3. Abnormal lung exam - the patient has significant crackles appreciated on lung exam. He has appropriate oxygenation, though remains in the mid 90s on room air. This likely represents atelectasis secondary to splinting after his recent abdominal surgery. The patient is complaining of thick sputum and a painful cough. For this reason, recommend starting guaifenesin to help to thin his secretions, make it easier for him to clear them, as well as continuing his incentive spirometer but also adding a flutter valve. 4. Hypertension - recommend resuming carvedilol. Can hold his hydrochlorothiazide at this time. 5. Seizure disorder - the patient has been free of seizure during this hospital admission. Now that he is tolerating orals, recommend resuming his oral Tegretol and discontinue the Keppra IV. 6. Code status. The patient is full code. 7. Healthcare proxy is unknown. 8. DVT prophylaxis, heparin subcu per Surgery. DISPOSITION: Hospitalist group will continue to follow along with this patient in regards to his tachycardia. Please see recommendations above. BENNIE HENDRICKS [id number]/CPS #: [id number] JOSÉ LUIS
[2016-11-14] MEDS ORDERED: KCL 10 MEQ/50 ML IVPREMIX* 10 MEQ/50 ML BAG ONE (18:03)
[2016-11-14] MEDS: guaiFENesin ER TAB 600 MG PO SCH (21:01)
[2016-11-14] MEDS: Carvedilol TAB* 6.25 MG PO SCH (21:02)
[2016-11-14] MEDS: carBAMazepine ER TAB(*) 100 MG PO SCH (21:03)
[2016-11-15] MEDS: Heparin VIAL(*) 5000 UNITS/ML VIAL (FIVE THOUSAND) SUBCUT SCH ×3 (05:57→22:03)
[2016-11-15] MEDS: Piperac/Tazob 3.375 gm in NS* 3.375 GM/100 ML BAG IVPB SCH ×3 (05:58→22:05)
[2016-11-15 06:44] LABS: Hematocrit 34 % (42-52); Hemoglobin 11.4 g/dl (14.0-18.0); Mean Corpuscular HGB Conc 34 g/dl (31-36); Mean Corpuscular Hemoglobin 31 pg (27-31); Mean Corpuscular Volume 91 fL (80-94); Mean Platelet Volume 8 um3 (7.4-10.4); Red Blood Count 3.72 10^6/ul (4.0-5.4); Red Cell Distribution Width 13 % (10.5-15); White Blood Count 13.5 10^3/ul (3.5-10.8)
[2016-11-15 07:01] LABS: BUN/Creatinine Ratio 8.8 (8-20); Calcium 7.8 mg/dL (8.6-10.3); EGFR African American 118.7 (>60); EGFR Non-African American 92.3 (>60); Magnesium 1.9 mg/dL (1.9-2.7); Potassium 3.3 mmol/L (3.5-5.0)
[2016-11-15] MEDS ORDERED: oxyCODONE/Acetamin 5/325 MG* TAB PO PRN (09:17)
--- NOTE | 2016-11-15 09:37 | PN ---
Progress Note - Progress Note SOAP: Subjective: Passing flatus and had several bowel movements yesterday. No nausea or vomiting. He would like to eat more-no abdominal pain. He has a productive cough and is working to bring up sputum. No chest pain. Objective: Tmax 100.8 Temp Pulse Resp BP Pulse Ox 98.2 F 102 18 127/93 97 11/15/16 07:49 11/15/16 07:49 11/15/16 07:49 11/15/16 07:49 11/15/16 07:49 Intake & Output 11/13/16 11/14/16 11/15/16 11/16/16 06:59 06:59 06:59 06:59 Intake Total 3637 3205 4147 Output Total 1605 2063 845 150 Balance 2032 1142 3302 -150 Intake: IV Fluids 2327 3110 2480 ABX - ZOSYN 255 213 Compazine 50 Keppra 105 100 LR 550 NS 500 NS (0.9%) 972 2792 2380 IVPB 357 ABX - ZOSYN 307 Potassium 50 Medicated IV 95 150 Keppra 95 Magnesium 50 Potassium 100 Oral 1310 0 1160 Output: NG Tube Drainage Amount 300 175 KY #1 230 88 45 Urine 625 1800 800 150 Emesis 450 Other: Estimated Void Medium Medium Date of Last Bowel 11/14/16 Movement # Bowel Movements 1 0 Estimated Stool Amount Medium Medium # Voids 1 5 PEX: Comfortable in chair. Lungs: Decreased breath sounds in the bases--few crackles. No wheezes or rhonchi. Abd is soft and non-distended. Bowel sounds are present. Incisions are clean and dry. He has minimal incisional pain, no generalized pain or guarding. KY in place with a small amount of serous fluid in the bulb Laboratory Results - last 24 hr 11/14/16 11/15/16 11/15/16 08:03 06:05 06:05 WBC 13.5 H RBC 3.72 L Hgb 11.4 L Hct 34 L MCV 91 MCH 31 MCHC 34 RDW 13 Plt Count 160 MPV 8 Neut % (Auto) 80.8 Lymph % (Auto) 8.4 L Spink % (Auto) 8.2 Eos % (Auto) 2.4 Baso % (Auto) 0.2 Absolute Neuts (auto) 10.9 H Absolute Lymphs (auto) 1.1 Absolute Monos (auto) 1.1 H Absolute Eos (auto) 0.3 Absolute Basos (auto) 0 Absolute Nucleated RBC 0 Nucleated RBC % 0 Sodium 141 137 Potassium 3.3 L 3.3 L Chloride 111 108 Carbon Dioxide 15 L 21 L Anion Gap 15 H 8 BUN 15 8 Creatinine 1.04 0.91 Est GFR ( Amer) 101.7 118.7 Est GFR (Non-Af Amer) 79.1 92.3 BUN/Creatinine Ratio 14.4 8.8 Glucose 83 100 Calcium 7.8 L Magnesium 1.9 TSH 0.70 Assessment: POD# 3 s/p lap appy for perforated appendicitis Post-op ileus--resolved; GI function has returned and he would like to eat Elevated WBC and low grade fever Hypokalemia Seizure disorder Plan: Will advance diet to regular and saline lock IVF Replete K+ D/C KY drain Continue IV antibiotics. WBC is up today and he had a low grade fever last night. CXR yesterday with basilar atelectasis v. consolidation. I don't think fever and WBC are from abdominal process with return of GI function and exam that is benign in addition to appearance and amount of KY drainage but with severity of appendicitis need to worry about abscess/intra-abdominal sepsis. He has a productive cough and I suspect fever and WBC most likely pulmonary source-he did have vomiting and had NGT placed and may have aspirated. Discussed with Maria A Boo, Hospitalist, who will see him today. She is going to add Azithromycin IV and we will follow-recheck labs in AM. If WBC or fever persists or develops GI symptoms, will proceed with CT chest/abd/pelvis. Continue aggressive pulmonary toilet PPI and subq heparin.
[2016-11-15] MEDS: Potassium Chlor TAB* 20 MEQ TAB.ER PO SCH ×3 (09:39→21:01)
[2016-11-15] MEDS: guaiFENesin ER TAB 600 MG PO SCH ×2 (09:39→21:02)
[2016-11-15] MEDS: Carvedilol TAB* 6.25 MG PO SCH ×2 (09:39→21:02)
[2016-11-15] MEDS: Pantoprazole IV* 40 MG IV SCH (09:39)
[2016-11-15] MEDS: KCL 10 MEQ/50 ML IVPREMIX* 10 MEQ/50 ML BAG IV SCH ×2 (09:42→11:24)
[2016-11-15] MEDS: carBAMazepine ER TAB(*) 100 MG PO SCH ×2 (09:52→20:57)
[2016-11-15] MEDS ORDERED: Azithromycin IV(*) 500 MG in NS 0.9% 250 ML* 250 ML IVPB SCH (10:00)
[2016-11-15] MEDS: levETIRAcetam 500 MG IVPREMIX* 500 MG/100 ML BAG IV SCH (10:54)
--- NOTE | 2016-11-15 11:19 | PN ---
Subjective Date of Service: 11/15/16 Interval History: Patient seen and examined at bedside. He is OOB to chair and states he is feeling better. He has started with regular food and has done well. Denies CP, SOB, n/v. He reports that he is still having difficulty with chest congestion and expectorating. He reports using his incentive spirometry. Patient reports improvement in abdominal pain but is still hesitant with deep inspiration and coughing. Family History: Unchanged from Admission Social History: Unchanged from Admission Past Medical History: Unchanged from Admission Objective Active Medications: Acetaminophen (Tylenol Tab*) 650 mg PO Q4H PRN PRN Reason: Pain Or Temperature >101 F Last Admin: 11/13/16 00:44 Dose: 650 mg Carbamazepine (Tegretol Xr Tab(*)) 500 mg PO BID [facility] Last Admin: 11/15/16 09:52 Dose: 500 mg Carvedilol (Coreg Tab*) 6.25 mg PO BID [facility] Last Admin: 11/15/16 09:39 Dose: 6.25 mg Guaifenesin (Mucinex*) 1,200 mg PO BID [facility] Last Admin: 11/15/16 09:39 Dose: 1,200 mg Heparin Sodium (Porcine) (Heparin Vial(*)) 5,000 units SUBCUT Q8HR [facility] Last Admin: 11/15/16 05:57 Dose: 5,000 units Hydromorphone HCl (Dilaudid Iv*) 1 mg IV Q1H PRN PRN Reason: PAIN - SEVERE Last Admin: 11/13/16 07:31 Dose: 1 mg Piperacillin Sod/Tazobactam Sod (Zosyn 3.375 Gm In Ns Premix*) 3.375 gm in 100 mls @ 25 mls/hr IVPB Q8HR [facility] Last Admin: 11/15/16 05:58 Dose: 25 mls/hr Levetiracetam (Keppra Iv Premix*) 500 mg in 100 mls @ 400 mls/hr IV Q12H [facility] Last Admin: 11/15/16 10:54 Dose: 400 mls/hr Azithromycin 250 mg/ Sodium (Chloride) 250 mls @ 250 mls/hr IVPB Q24H [facility] Stop: 11/19/16 10:59 Azithromycin 500 mg/ Sodium (Chloride) 250 mls @ 250 mls/hr IVPB Q24H [facility] Last Admin: 11/15/16 10:52 Dose: 250 mls/hr Potassium Chloride (Potassium Chloride 10 Meq/50 Ml Ivpremix*) 10 meq in 50 mls @ 50 mls/hr IV Q2H [facility] Stop: 11/15/16 12:18 Last Admin: 11/15/16 09:42 Dose: 50 mls/hr Ketorolac Tromethamine (Toradol Inj*) 30 mg IV PUSH Q6H PRN PRN Reason: PAIN Last Admin: 11/13/16 07:32 Dose: 30 mg Ondansetron HCl (Zofran Inj*) 4 mg IV Q4H PRN PRN Reason: NAUSEA/VOMITING Last Admin: 11/13/16 05:47 Dose: 4 mg Oxycodone/Acetaminophen (Percocet 5/325 Tab*) 1 tab PO Q4H PRN PRN Reason: PAIN Pantoprazole Sodium (Protonix Iv*) 40 mg IV DAILY [facility] Last Admin: 11/15/16 09:39 Dose: 40 mg Potassium Chloride (Klor Con Er Tab*) 20 meq PO TID [facility] Last Admin: 11/15/16 09:39 Dose: 20 meq Prochlorperazine Edisylate (Compazine Inj*) 10 mg IV Q6H PRN PRN Reason: NAUSEA/VOMITING Last Admin: 11/13/16 03:31 Dose: 10 mg Vital Signs 11/14/16 11/14/16 11/14/16 11:30 11:58 15:21 Temperature 99.8 F 100.5 F Pulse Rate 114 116 Respiratory 18 16 Rate Blood Pressure 133/97 146/93 (mmHg) O2 Sat by Pulse 95 97 96 Oximetry 11/14/16 11/14/16 11/14/16 16:00 19:08 21:00 Temperature 98.8 F Pulse Rate 109 Respiratory 20 18 Rate Blood Pressure 130/84 (mmHg) O2 Sat by Pulse 96 95 Oximetry 11/15/16 11/15/16 11/15/16 00:08 04:06 07:49 Temperature 100.7 F 100.2 F 98.2 F Pulse Rate 107 104 102 Respiratory 22 20 18 Rate Blood Pressure 136/79 129/79 127/93 (mmHg) O2 Sat by Pulse 94 93 97 Oximetry Oxygen Devices in Use Now: None Appearance: Male patient, OOB to chair, in NAD Eyes: PERRLA Ears/Nose/Mouth/Throat: Clear Oropharnyx, Mucous Membranes Moist Neck: NL Appearance and Movements; NL JVP Respiratory: Symmetrical Chest Expansion and Respiratory Effort, - - crackles to bases of lungs Cardiovascular: NL Sounds; No Murmurs; No JVD, RRR - tachycardic Abdominal: - - soft, mildly distended, tender with palpation Extremities: No Edema, - - LUE contracture Neurological: Alert and Oriented x 3, - - garbled speech, appears to be baseline Lines/Tubes/Other Access: Clean, Dry and Intact Peripheral IV Nutrition: Taking PO's Result Diagrams: 11/15/16 06:05 11/15/16 06:05 Additional Lab and Data: Lab Results 11/11/16 11/11/16 11/11/16 Range/Units 21:55 21:55 21:55 WBC 16.2 H (3.5-10.8) 10^3/ul RBC 5.25 (4.0-5.4) 10^6/ul Hgb 16.1 (14.0-18.0) g/dl Hct 48 (42-52) % MCV 91 (80-94) fL MCH 31 (27-31) pg MCHC 34 (31-36) g/dl RDW 13 (10.5-15) % Plt Count 202 (150-450) 10^3/ul MPV 8 (7.4-10.4) um3 Neut % (Auto) 86.0 H (38-83) % Lymph % (Auto) 5.2 L (25-47) % [place] % (Auto) 8.4 (1-9) % Eos % (Auto) 0 (0-6) % Baso % (Auto) 0.4 (0-2) % Absolute Neuts (auto) 14.0 H (1.5-7.7) 10^3/ul Absolute Lymphs (auto) 0.8 L (1.0-4.8) 10^3/ul Absolute Monos (auto) 1.4 H (0-0.8) 10^3/ul Absolute Eos (auto) 0 (0-0.6) 10^3/ul Absolute Basos (auto) 0.1 (0-0.2) 10^3/ul Absolute Nucleated RBC 0.01 10^3/ul Nucleated RBC % 0 Sodium 137 (133-145) mmol/L Potassium 3.7 (3.5-5.0) mmol/L Chloride 102 (101-111) mmol/L Carbon Dioxide 24 (22-32) mmol/L Anion Gap 11 (2-11) mmol/L BUN 17 (6-24) mg/dL Creatinine 1.11 (0.67-1.17) mg/dL Est GFR ( Amer) 94.4 (>60) Est GFR (Non-Af Amer) 73.4 (>60) BUN/Creatinine Ratio 15.3 (8-20) Glucose 148 H (70-100) mg/dL Lactic Acid 3.3 H* (0.5-2.0) mmol/L Calcium 9.5 (8.6-10.3) mg/dL Total Bilirubin 0.80 (0.2-1.0) mg/dL AST 17 (13-39) U/L ALT 22 (7-52) U/L Alkaline Phosphatase 76 (34-104) U/L C-Reactive Protein 15.66 H (< 5.00) mg/L Total Protein 7.5 (6.4-8.9) g/dL Albumin 4.4 (3.2-5.2) g/dL Globulin 3.1 (2-4) g/dL Albumin/Globulin Ratio 1.4 (1-3) Lipase 14 (11.0-82.0) U/L Urine Color Urine Appearance Urine pH (5-9) Ur Specific [place] (1.010-1.030) Urine Protein (Negative) Urine Ketones (Negative) Urine Blood (Negative) Urine Nitrate (Negative) Urine Bilirubin (Negative) Urine Urobilinogen (Negative) Ur Leukocyte Esterase (Negative) Urine WBC (Auto) (Absent) Urine RBC (Auto) (Absent) Ur Squamous Epith Cells (Absent) Urine Bacteria (Absent) Urine Glucose (Negative) 11/11/16 Range/Units 22:15 WBC (3.5-10.8) 10^3/ul RBC (4.0-5.4) 10^6/ul Hgb (14.0-18.0) g/dl Hct (42-52) % MCV (80-94) fL MCH (27-31) pg MCHC (31-36) g/dl RDW (10.5-15) % Plt Count (150-450) 10^3/ul MPV (7.4-10.4) um3 Neut % (Auto) (38-83) % Lymph % (Auto) (25-47) % [place] % (Auto) (1-9) % Eos % (Auto) (0-6) % Baso % (Auto) (0-2) % Absolute Neuts (auto) (1.5-7.7) 10^3/ul Absolute Lymphs (auto) (1.0-4.8) 10^3/ul Absolute Monos (auto) (0-0.8) 10^3/ul Absolute Eos (auto) (0-0.6) 10^3/ul Absolute Basos (auto) (0-0.2) 10^3/ul Absolute Nucleated RBC 10^3/ul Nucleated RBC % Sodium (133-145) mmol/L Potassium (3.5-5.0) mmol/L Chloride (101-111) mmol/L Carbon Dioxide (22-32) mmol/L Anion Gap (2-11) mmol/L BUN (6-24) mg/dL Creatinine (0.67-1.17) mg/dL Est GFR ( Amer) (>60) Est GFR (Non-Af Amer) (>60) BUN/Creatinine Ratio (8-20) Glucose (70-100) mg/dL Lactic Acid (0.5-2.0) mmol/L Calcium (8.6-10.3) mg/dL Total Bilirubin (0.2-1.0) mg/dL AST (13-39) U/L ALT (7-52) U/L Alkaline Phosphatase (34-104) U/L C-Reactive Protein (< 5.00) mg/L Total Protein (6.4-8.9) g/dL Albumin (3.2-5.2) g/dL Globulin (2-4) g/dL Albumin/Globulin Ratio (1-3) Lipase (11.0-82.0) U/L Urine Color [place] Urine Appearance Cloudy Urine pH 5.0 (5-9) Ur Specific [place] 1.028 (1.010-1.030) Urine Protein 1+(30 mg/dl) H (Negative) Urine Ketones Negative (Negative) Urine Blood Negative (Negative) Urine Nitrate Negative (Negative) Urine Bilirubin 1+ (Negative) Urine Urobilinogen Positive H (Negative) Ur Leukocyte Esterase Negative (Negative) Urine WBC (Auto) Trace(0-5/hpf) (Absent) Urine RBC (Auto) 1+(3-5/hpf) H (Absent) Ur Squamous Epith Cells Present H (Absent) Urine Bacteria Absent (Absent) Urine Glucose Negative (Negative) Assess/Plan/Problems-Billing Assessment: Rodrigue Torres is a 41 yo male with a PMH of cerebral palsy, seizure disorder , and HTN who was admitted for perforated appendix and associated peritionitis and is s/p appendectomy and washout procedure; hospital medicine consult for co- medical management. - Patient Problems (1) Perforated appendicitis Code(s): K35.2 - ACUTE APPENDICITIS WITH GENERALIZED PERITONITIS Comment: With associated peritonitis S/p appendectomy and washout, POD #3 Management per surgery, diet advancing per surgery Continue Zosyn (2) Tachycardia Code(s): R00.0 - TACHYCARDIA, UNSPECIFIED Comment: Suspect secondary to pneumonia and post-operative pain Sinus tachycardia on EKG Continue carvedilol (which was previously held perioperatively) Electrolyte replacement as needed (3) Pneumonia Code(s): J18.9 - PNEUMONIA, UNSPECIFIED ORGANISM Comment: Bibasilar atelectasis with concern for consolidation on left on most recent CXR Tmax 100.8 overnight Continue Zosyn and add azithromycin for atypical pathogen coverage Continue incentive spirometry, guaifenesin Recheck CBC in AM (4) HTN (hypertension) Code(s): I10 - ESSENTIAL (PRIMARY) HYPERTENSION Comment: Normotensive, continue carvedilol. (5) Seizure disorder Code(s): G40.909 - EPILEPSY, UNSP, NOT INTRACTABLE, WITHOUT STATUS EPILEPTICUS Comment: Continue home carbamazepine. Seizure precautions. (6) DVT prophylaxis Code(s): [id number] - Comment: SQ heparin Status and Disposition: Inpatient admission, disposition per surgery. Hospitalist co-medical management.
[2016-11-16 05:20] LABS: Hematocrit 31 % (42-52); Hemoglobin 10.7 g/dl (14.0-18.0); Mean Corpuscular HGB Conc 34 g/dl (31-36); Mean Corpuscular Hemoglobin 31 pg (27-31); Mean Corpuscular Volume 91 fL (80-94); Mean Platelet Volume 8 um3 (7.4-10.4); Red Blood Count 3.44 10^6/ul (4.0-5.4); Red Cell Distribution Width 13 % (10.5-15); White Blood Count 10.8 10^3/ul (3.5-10.8)
[2016-11-16 05:31] LABS: BUN/Creatinine Ratio 9.9 (8-20); Calcium 7.8 mg/dL (8.6-10.3); EGFR African American 135.7 (>60); EGFR Non-African American 105.5 (>60); Potassium 3.6 mmol/L (3.5-5.0)
[2016-11-16] MEDS: Piperac/Tazob 3.375 gm in NS* 3.375 GM/100 ML BAG IVPB SCH ×3 (05:39→22:51)
[2016-11-16] MEDS: Heparin VIAL(*) 5000 UNITS/ML VIAL (FIVE THOUSAND) SUBCUT SCH ×3 (05:42→22:54)
[2016-11-16] MEDS: Acetaminophen TAB* 325 MG PO PRN (05:46)
[2016-11-16] MEDS: carBAMazepine ER TAB(*) 100 MG PO SCH ×2 (09:00→20:21)
[2016-11-16] MEDS: Pantoprazole IV* 40 MG IV SCH (09:01)
[2016-11-16] MEDS: Potassium Chlor TAB* 20 MEQ TAB.ER PO SCH ×3 (09:02→20:20)
[2016-11-16] MEDS: guaiFENesin ER TAB 600 MG PO SCH ×2 (09:04→20:18)
[2016-11-16] MEDS: Carvedilol TAB* 6.25 MG PO SCH ×2 (09:04→20:18)
--- NOTE | 2016-11-16 09:37 | PN ---
Subjective Date of Service: 11/16/16 Interval History: Patient seen and examined at bedside. He reports having 4 episodes of loose, runny stools since yesterday, after starting solid foods. He denies abdominal pain, n/v or blood in stools. He denies any chest pain or SOB but does feel as if his chest tightens with deep breathing. He denies any wheezing. Overall, he feels better. Pain to abdomen is controlled. Family History: Unchanged from Admission Social History: Unchanged from Admission Past Medical History: Unchanged from Admission Objective Active Medications: Acetaminophen (Tylenol Tab*) 650 mg PO Q4H PRN PRN Reason: Pain Or Temperature >101 F Last Admin: 11/16/16 05:46 Dose: 650 mg Carbamazepine (Tegretol Xr Tab(*)) 500 mg PO BID [facility] Last Admin: 11/16/16 09:00 Dose: 500 mg Carvedilol (Coreg Tab*) 6.25 mg PO BID [facility] Last Admin: 11/16/16 09:04 Dose: 6.25 mg Guaifenesin (Mucinex*) 1,200 mg PO BID [facility] Last Admin: 11/16/16 09:04 Dose: 1,200 mg Heparin Sodium (Porcine) (Heparin Vial(*)) 5,000 units SUBCUT Q8HR [facility] Last Admin: 11/16/16 05:42 Dose: 5,000 units Hydromorphone HCl (Dilaudid Iv*) 1 mg IV Q1H PRN PRN Reason: PAIN - SEVERE Last Admin: 11/13/16 07:31 Dose: 1 mg Piperacillin Sod/Tazobactam Sod (Zosyn 3.375 Gm In Ns Premix*) 3.375 gm in 100 mls @ 25 mls/hr IVPB Q8HR [facility] Last Admin: 11/16/16 05:39 Dose: 25 mls/hr Levetiracetam (Keppra Iv Premix*) 500 mg in 100 mls @ 400 mls/hr IV Q12H [facility] Last Admin: 11/16/16 00:00 Dose: 400 mls/hr Azithromycin 250 mg/ Sodium (Chloride) 250 mls @ 250 mls/hr IVPB Q24H [facility] Stop: 11/19/16 10:59 Ketorolac Tromethamine (Toradol Inj*) 30 mg IV PUSH Q6H PRN PRN Reason: PAIN Last Admin: 11/13/16 07:32 Dose: 30 mg Ondansetron HCl (Zofran Inj*) 4 mg IV Q4H PRN PRN Reason: NAUSEA/VOMITING Last Admin: 11/13/16 05:47 Dose: 4 mg Oxycodone/Acetaminophen (Percocet 5/325 Tab*) 1 tab PO Q4H PRN PRN Reason: PAIN Pantoprazole Sodium (Protonix Iv*) 40 mg IV DAILY [facility] Last Admin: 11/16/16 09:01 Dose: 40 mg Potassium Chloride (Klor Con Er Tab*) 20 meq PO TID [facility] Last Admin: 11/16/16 09:02 Dose: 20 meq Prochlorperazine Edisylate (Compazine Inj*) 10 mg IV Q6H PRN PRN Reason: NAUSEA/VOMITING Last Admin: 11/13/16 03:31 Dose: 10 mg Vital Signs 11/15/16 11/15/16 11/15/16 12:10 15:58 16:00 Temperature 97.8 F 99.2 F Pulse Rate 94 105 Respiratory 18 20 Rate Blood Pressure 132/86 131/78 (mmHg) O2 Sat by Pulse 97 100 100 Oximetry 11/15/16 11/15/16 11/15/16 19:29 21:13 23:28 Temperature 98.8 F 98.9 F Pulse Rate 104 91 Respiratory 22 18 24 Rate Blood Pressure 153/93 121/74 (mmHg) O2 Sat by Pulse 98 96 Oximetry 11/16/16 11/16/16 11/16/16 03:35 07:00 07:51 Temperature 98.5 F 99.3 F Pulse Rate 95 88 Respiratory 24 17 Rate Blood Pressure 125/75 129/84 (mmHg) O2 Sat by Pulse 98 96 96 Oximetry 11/16/16 07:53 Temperature Pulse Rate Respiratory 17 Rate Blood Pressure (mmHg) O2 Sat by Pulse Oximetry Oxygen Devices in Use Now: None Appearance: Male patient, OOB to chair, in NAD Eyes: PERRLA Ears/Nose/Mouth/Throat: Clear Oropharnyx, Mucous Membranes Moist Neck: NL Appearance and Movements; NL JVP Respiratory: Symmetrical Chest Expansion and Respiratory Effort, - - crackles in bases, good aeration throughout all lung hough Cardiovascular: NL Sounds; No Murmurs; No JVD, RRR Abdominal: - - soft, mildly tender with palpation, normoactive bowel sounds Extremities: No Edema, - - LUE contracture Skin: No Rash or Ulcers Neurological: Alert and Oriented x 3 Lines/Tubes/Other Access: Clean, Dry and Intact Peripheral IV Nutrition: Taking PO's Result Diagrams: 11/16/16 05:05 11/16/16 05:05 Additional Lab and Data: Lab Results 11/11/16 11/11/16 11/11/16 Range/Units 21:55 21:55 21:55 WBC 16.2 H (3.5-10.8) 10^3/ul RBC 5.25 (4.0-5.4) 10^6/ul Hgb 16.1 (14.0-18.0) g/dl Hct 48 (42-52) % MCV 91 (80-94) fL MCH 31 (27-31) pg MCHC 34 (31-36) g/dl RDW 13 (10.5-15) % Plt Count 202 (150-450) 10^3/ul MPV 8 (7.4-10.4) um3 Neut % (Auto) 86.0 H (38-83) % Lymph % (Auto) 5.2 L (25-47) % [place] % (Auto) 8.4 (1-9) % Eos % (Auto) 0 (0-6) % Baso % (Auto) 0.4 (0-2) % Absolute Neuts (auto) 14.0 H (1.5-7.7) 10^3/ul Absolute Lymphs (auto) 0.8 L (1.0-4.8) 10^3/ul Absolute Monos (auto) 1.4 H (0-0.8) 10^3/ul Absolute Eos (auto) 0 (0-0.6) 10^3/ul Absolute Basos (auto) 0.1 (0-0.2) 10^3/ul Absolute Nucleated RBC 0.01 10^3/ul Nucleated RBC % 0 Sodium 137 (133-145) mmol/L Potassium 3.7 (3.5-5.0) mmol/L Chloride 102 (101-111) mmol/L Carbon Dioxide 24 (22-32) mmol/L Anion Gap 11 (2-11) mmol/L BUN 17 (6-24) mg/dL Creatinine 1.11 (0.67-1.17) mg/dL Est GFR ( Amer) 94.4 (>60) Est GFR (Non-Af Amer) 73.4 (>60) BUN/Creatinine Ratio 15.3 (8-20) Glucose 148 H (70-100) mg/dL Lactic Acid 3.3 H* (0.5-2.0) mmol/L Calcium 9.5 (8.6-10.3) mg/dL Total Bilirubin 0.80 (0.2-1.0) mg/dL AST 17 (13-39) U/L ALT 22 (7-52) U/L Alkaline Phosphatase 76 (34-104) U/L C-Reactive Protein 15.66 H (< 5.00) mg/L Total Protein 7.5 (6.4-8.9) g/dL Albumin 4.4 (3.2-5.2) g/dL Globulin 3.1 (2-4) g/dL Albumin/Globulin Ratio 1.4 (1-3) Lipase 14 (11.0-82.0) U/L Urine Color Urine Appearance Urine pH (5-9) Ur Specific [place] (1.010-1.030) Urine Protein (Negative) Urine Ketones (Negative) Urine Blood (Negative) Urine Nitrate (Negative) Urine Bilirubin (Negative) Urine Urobilinogen (Negative) Ur Leukocyte Esterase (Negative) Urine WBC (Auto) (Absent) Urine RBC (Auto) (Absent) Ur Squamous Epith Cells (Absent) Urine Bacteria (Absent) Urine Glucose (Negative) 11/11/16 Range/Units 22:15 WBC (3.5-10.8) 10^3/ul RBC (4.0-5.4) 10^6/ul Hgb (14.0-18.0) g/dl Hct (42-52) % MCV (80-94) fL MCH (27-31) pg MCHC (31-36) g/dl RDW (10.5-15) % Plt Count (150-450) 10^3/ul MPV (7.4-10.4) um3 Neut % (Auto) (38-83) % Lymph % (Auto) (25-47) % [place] % (Auto) (1-9) % Eos % (Auto) (0-6) % Baso % (Auto) (0-2) % Absolute Neuts (auto) (1.5-7.7) 10^3/ul Absolute Lymphs (auto) (1.0-4.8) 10^3/ul Absolute Monos (auto) (0-0.8) 10^3/ul Absolute Eos (auto) (0-0.6) 10^3/ul Absolute Basos (auto) (0-0.2) 10^3/ul Absolute Nucleated RBC 10^3/ul Nucleated RBC % Sodium (133-145) mmol/L Potassium (3.5-5.0) mmol/L Chloride (101-111) mmol/L Carbon Dioxide (22-32) mmol/L Anion Gap (2-11) mmol/L BUN (6-24) mg/dL Creatinine (0.67-1.17) mg/dL Est GFR ( Amer) (>60) Est GFR (Non-Af Amer) (>60) BUN/Creatinine Ratio (8-20) Glucose (70-100) mg/dL Lactic Acid (0.5-2.0) mmol/L Calcium (8.6-10.3) mg/dL Total Bilirubin (0.2-1.0) mg/dL AST (13-39) U/L ALT (7-52) U/L Alkaline Phosphatase (34-104) U/L C-Reactive Protein (< 5.00) mg/L Total Protein (6.4-8.9) g/dL Albumin (3.2-5.2) g/dL Globulin (2-4) g/dL Albumin/Globulin Ratio (1-3) Lipase (11.0-82.0) U/L Urine Color [place]el Urine Appearance Cloudy Urine pH 5.0 (5-9) Ur Specific [place] 1.028 (1.010-1.030) Urine Protein 1+(30 mg/dl) H (Negative) Urine Ketones Negative (Negative) Urine Blood Negative (Negative) Urine Nitrate Negative (Negative) Urine Bilirubin 1+ (Negative) Urine Urobilinogen Positive H (Negative) Ur Leukocyte Esterase Negative (Negative) Urine WBC (Auto) Trace(0-5/hpf) (Absent) Urine RBC (Auto) 1+(3-5/hpf) H (Absent) Ur Squamous Epith Cells Present H (Absent) Urine Bacteria Absent (Absent) Urine Glucose Negative (Negative) Assess/Plan/Problems-Billing Assessment: Rodrigue Torres is a 41 yo male with a PMH of cerebral palsy, seizure disorder , and HTN who was admitted for perforated appendix and associated peritionitis and is s/p appendectomy and washout procedure; hospital medicine consult for co- medical management. - Patient Problems (1) Perforated appendicitis Code(s): K35.2 - ACUTE APPENDICITIS WITH GENERALIZED PERITONITIS Comment: With associated peritonitis S/p appendectomy and washout, POD #4 Management per surgery, diet advancing per surgery Continue Zosyn (2) Diarrhea Code(s): R19.7 - DIARRHEA, UNSPECIFIED Comment: Suspect secondary to reintroducing solid foods after being on liquid diet, but may be secondary to antibiotics Not associated with abd pain, nausea, melena. Positive flatus Will start probiotic Surgery also to eval patient today and will wait for their input (3) Tachycardia Code(s): R00.0 - TACHYCARDIA, UNSPECIFIED Comment: Improved today, HR 90s Suspect secondary to pneumonia and post-operative pain Sinus tachycardia on EKG Continue carvedilol (which was previously held perioperatively) Electrolyte replacement as needed (4) Pneumonia Code(s): J18.9 - PNEUMONIA, UNSPECIFIED ORGANISM Comment: Bibasilar atelectasis with concern for consolidation on left on most recent CXR Afebrile overnight, WBC improved. Continue Zosyn and azithromycin Continue incentive spirometry, guaifenesin (5) HTN (hypertension) Code(s): I10 - ESSENTIAL (PRIMARY) HYPERTENSION Comment: Normotensive, continue carvedilol. (6) Seizure disorder Code(s): G40.909 - EPILEPSY, UNSP, NOT INTRACTABLE, WITHOUT STATUS EPILEPTICUS Comment: Continue home carbamazepine. Seizure precautions. (7) DVT prophylaxis Code(s): [id number] - Comment: SQ heparin Status and Disposition: Inpatient admission, disposition per surgery. Hospitalist co-medical management.
[2016-11-16] MEDS: Calcium/Vitamin D TAB 250/125* TAB PO SCH (09:56)
[2016-11-16] MEDS: Azithromycin IV(*) 250 MG in NS 0.9% 250 ML* 250 ML IVPB SCH (09:56)
[2016-11-16] MEDS: levETIRAcetam 500 MG IVPREMIX* 500 MG/100 ML BAG IV SCH ×2 (11:26)
[2016-11-16] MEDS: Lactobacillus Acidophilu (GG)* 1 CAP CAP PO SCH (11:47)
--- NOTE | 2016-11-16 11:57 | PN ---
Progress Note - Progress Note SOAP: Subjective: Pt seen and examined. No complaints. Tolerating diet. Appreciate hosp note 1 episode vomit this am likely more phlegm-like Objective: [af vss a and o x3, nad abdo: soft/ND/incisional tenderness mild eccymosis at umbilical incision no calf tenderness Assessment: s/p lap appy, peritonitis-resolved Plan: abx encourage PO DVT, GI proph
[2016-11-17] MEDS: Piperac/Tazob 3.375 gm in NS* 3.375 GM/100 ML BAG IVPB SCH ×2 (05:59→13:34)
[2016-11-17] MEDS: Heparin VIAL(*) 5000 UNITS/ML VIAL (FIVE THOUSAND) SUBCUT SCH ×2 (05:59→13:27)
[2016-11-17] MEDS: carBAMazepine ER TAB(*) 100 MG PO SCH (08:40)
[2016-11-17] MEDS: Calcium/Vitamin D TAB 250/125* TAB PO SCH (08:42)
[2016-11-17] MEDS: Carvedilol TAB* 6.25 MG PO SCH (08:43)
[2016-11-17] MEDS: Lactobacillus Acidophilu (GG)* 1 CAP CAP PO SCH (08:43)
[2016-11-17] MEDS: Potassium Chlor TAB* 20 MEQ TAB.ER PO SCH ×2 (08:44→13:27)
[2016-11-17] MEDS: Pantoprazole IV* 40 MG IV SCH (08:46)
[2016-11-17] MEDS: guaiFENesin ER TAB 600 MG PO SCH (08:46)
[2016-11-17] MEDS: Azithromycin IV(*) 250 MG in NS 0.9% 250 ML* 250 ML IVPB SCH (10:40)
[2016-11-17 11:55] VITALS: BP 134/89
--- NOTE | 2016-11-17 12:01 | PN ---
Subjective Date of Service: 11/17/16 Interval History: Rodrigue reports feeling better overall, denies any further episodes of diarrhea. Denies fever/chills, CP, SOB, abd pain, n/v. He is tolerating diet, and his pain is well controlled. He discussed discharge possibility with surgery and feels like he might like to go home. Family History: Unchanged from Admission Social History: Unchanged from Admission Past Medical History: Unchanged from Admission Objective Active Medications: Acetaminophen (Tylenol Tab*) 650 mg PO Q4H PRN PRN Reason: Pain Or Temperature >101 F Last Admin: 11/16/16 05:46 Dose: 650 mg Calcium/Vitamin D (Oscal D Tab 250/125*) 1 tab PO DAILY [facility] Last Admin: 11/17/16 08:42 Dose: 1 tab Carbamazepine (Tegretol Xr Tab(*)) 500 mg PO BID [facility] Last Admin: 11/17/16 08:40 Dose: 500 mg Carvedilol (Coreg Tab*) 6.25 mg PO BID [facility] Last Admin: 11/17/16 08:43 Dose: 6.25 mg Guaifenesin (Mucinex*) 1,200 mg PO BID [facility] Last Admin: 11/17/16 08:46 Dose: 1,200 mg Heparin Sodium (Porcine) (Heparin Vial(*)) 5,000 units SUBCUT Q8HR [facility] Last Admin: 11/17/16 05:59 Dose: 5,000 units Heparin Sodium (Porcine) (Heparin Flush Picc/Ml/Cvc(*)) 1 ml FLUSH 0600,1800 [facility] PRN Reason: Protocol Hydromorphone HCl (Dilaudid Iv*) 1 mg IV Q1H PRN PRN Reason: PAIN - SEVERE Last Admin: 11/13/16 07:31 Dose: 1 mg Piperacillin Sod/Tazobactam Sod (Zosyn 3.375 Gm In Ns Premix*) 3.375 gm in 100 mls @ 25 mls/hr IVPB Q8HR [facility] Last Admin: 11/17/16 05:59 Dose: 25 mls/hr Azithromycin 250 mg/ Sodium (Chloride) 250 mls @ 250 mls/hr IVPB Q24H [facility] Stop: 11/19/16 10:59 Last Admin: 11/17/16 10:40 Dose: 250 mls/hr Ketorolac Tromethamine (Toradol Inj*) 30 mg IV PUSH Q6H PRN PRN Reason: PAIN Last Admin: 11/13/16 07:32 Dose: 30 mg Lactobacillus Rhamnosus (Culturelle*) 1 cap PO DAILY [facility] Last Admin: 11/17/16 08:43 Dose: 1 cap Ondansetron HCl (Zofran Inj*) 4 mg IV Q4H PRN PRN Reason: NAUSEA/VOMITING Last Admin: 11/13/16 05:47 Dose: 4 mg Oxycodone/Acetaminophen (Percocet 5/325 Tab*) 1 tab PO Q4H PRN PRN Reason: PAIN Pantoprazole Sodium (Protonix Iv*) 40 mg IV DAILY [facility] Last Admin: 11/17/16 08:46 Dose: 40 mg Potassium Chloride (Klor Con Er Tab*) 20 meq PO TID [facility] Last Admin: 11/17/16 08:44 Dose: 20 meq Prochlorperazine Edisylate (Compazine Inj*) 10 mg IV Q6H PRN PRN Reason: NAUSEA/VOMITING Last Admin: 11/13/16 03:31 Dose: 10 mg Vital Signs 11/16/16 11/16/16 11/16/16 15:46 19:19 19:52 Temperature 98.2 F 99.9 F Pulse Rate 83 93 Respiratory 24 18 18 Rate Blood Pressure 133/90 147/99 (mmHg) O2 Sat by Pulse 99 97 Oximetry 11/16/16 11/17/16 11/17/16 23:23 03:31 07:24 Temperature 98.6 F 99.0 F Pulse Rate 86 88 Respiratory 20 20 20 Rate Blood Pressure 128/85 143/82 (mmHg) O2 Sat by Pulse 97 96 96 Oximetry 11/17/16 11/17/16 07:31 11:20 Temperature 97.9 F 98.4 F Pulse Rate 90 93 Respiratory 17 20 Rate Blood Pressure 151/95 134/89 (mmHg) O2 Sat by Pulse 96 95 Oximetry Oxygen Devices in Use Now: None Appearance: Male patient, OOB to chair, in NAD Eyes: PERRLA Ears/Nose/Mouth/Throat: Clear Oropharnyx, Mucous Membranes Moist Neck: NL Appearance and Movements; NL JVP Respiratory: Symmetrical Chest Expansion and Respiratory Effort, Clear to Auscultation, - - fine crackles posterior bases Cardiovascular: NL Sounds; No Murmurs; No JVD, RRR Abdominal: - - soft, mildly tender, BS x4 Extremities: No Edema, - - LUE contracture Skin: No Rash or Ulcers Neurological: Alert and Oriented x 3 Lines/Tubes/Other Access: Clean, Dry and Intact Peripheral IV Result Diagrams: 11/16/16 05:05 11/16/16 05:05 Additional Lab and Data: Lab Results 11/11/16 11/11/16 11/11/16 Range/Units 21:55 21:55 21:55 WBC 16.2 H (3.5-10.8) 10^3/ul RBC 5.25 (4.0-5.4) 10^6/ul Hgb 16.1 (14.0-18.0) g/dl Hct 48 (42-52) % MCV 91 (80-94) fL MCH 31 (27-31) pg MCHC 34 (31-36) g/dl RDW 13 (10.5-15) % Plt Count 202 (150-450) 10^3/ul MPV 8 (7.4-10.4) um3 Neut % (Auto) 86.0 H (38-83) % Lymph % (Auto) 5.2 L (25-47) % [place] % (Auto) 8.4 (1-9) % Eos % (Auto) 0 (0-6) % Baso % (Auto) 0.4 (0-2) % Absolute Neuts (auto) 14.0 H (1.5-7.7) 10^3/ul Absolute Lymphs (auto) 0.8 L (1.0-4.8) 10^3/ul Absolute Monos (auto) 1.4 H (0-0.8) 10^3/ul Absolute Eos (auto) 0 (0-0.6) 10^3/ul Absolute Basos (auto) 0.1 (0-0.2) 10^3/ul Absolute Nucleated RBC 0.01 10^3/ul Nucleated RBC % 0 Sodium 137 (133-145) mmol/L Potassium 3.7 (3.5-5.0) mmol/L Chloride 102 (101-111) mmol/L Carbon Dioxide 24 (22-32) mmol/L Anion Gap 11 (2-11) mmol/L BUN 17 (6-24) mg/dL Creatinine 1.11 (0.67-1.17) mg/dL Est GFR ( Amer) 94.4 (>60) Est GFR (Non-Af Amer) 73.4 (>60) BUN/Creatinine Ratio 15.3 (8-20) Glucose 148 H (70-100) mg/dL Lactic Acid 3.3 H* (0.5-2.0) mmol/L Calcium 9.5 (8.6-10.3) mg/dL Total Bilirubin 0.80 (0.2-1.0) mg/dL AST 17 (13-39) U/L ALT 22 (7-52) U/L Alkaline Phosphatase 76 (34-104) U/L C-Reactive Protein 15.66 H (< 5.00) mg/L Total Protein 7.5 (6.4-8.9) g/dL Albumin 4.4 (3.2-5.2) g/dL Globulin 3.1 (2-4) g/dL Albumin/Globulin Ratio 1.4 (1-3) Lipase 14 (11.0-82.0) U/L Urine Color Urine Appearance Urine pH (5-9) Ur Specific [place] (1.010-1.030) Urine Protein (Negative) Urine Ketones (Negative) Urine Blood (Negative) Urine Nitrate (Negative) Urine Bilirubin (Negative) Urine Urobilinogen (Negative) Ur Leukocyte Esterase (Negative) Urine WBC (Auto) (Absent) Urine RBC (Auto) (Absent) Ur Squamous Epith Cells (Absent) Urine Bacteria (Absent) Urine Glucose (Negative) 11/11/16 Range/Units 22:15 WBC (3.5-10.8) 10^3/ul RBC (4.0-5.4) 10^6/ul Hgb (14.0-18.0) g/dl Hct (42-52) % MCV (80-94) fL MCH (27-31) pg MCHC (31-36) g/dl RDW (10.5-15) % Plt Count (150-450) 10^3/ul MPV (7.4-10.4) um3 Neut % (Auto) (38-83) % Lymph % (Auto) (25-47) % [place] % (Auto) (1-9) % Eos % (Auto) (0-6) % Baso % (Auto) (0-2) % Absolute Neuts (auto) (1.5-7.7) 10^3/ul Absolute Lymphs (auto) (1.0-4.8) 10^3/ul Absolute Monos (auto) (0-0.8) 10^3/ul Absolute Eos (auto) (0-0.6) 10^3/ul Absolute Basos (auto) (0-0.2) 10^3/ul Absolute Nucleated RBC 10^3/ul Nucleated RBC % Sodium (133-145) mmol/L Potassium (3.5-5.0) mmol/L Chloride (101-111) mmol/L Carbon Dioxide (22-32) mmol/L Anion Gap (2-11) mmol/L BUN (6-24) mg/dL Creatinine (0.67-1.17) mg/dL Est GFR ( Amer) (>60) Est GFR (Non-Af Amer) (>60) BUN/Creatinine Ratio (8-20) Glucose (70-100) mg/dL Lactic Acid (0.5-2.0) mmol/L Calcium (8.6-10.3) mg/dL Total Bilirubin (0.2-1.0) mg/dL AST (13-39) U/L ALT (7-52) U/L Alkaline Phosphatase (34-104) U/L C-Reactive Protein (< 5.00) mg/L Total Protein (6.4-8.9) g/dL Albumin (3.2-5.2) g/dL Globulin (2-4) g/dL Albumin/Globulin Ratio (1-3) Lipase (11.0-82.0) U/L Urine Color [place] Urine Appearance Cloudy Urine pH 5.0 (5-9) Ur Specific [place] 1.028 (1.010-1.030) Urine Protein 1+(30 mg/dl) H (Negative) Urine Ketones Negative (Negative) Urine Blood Negative (Negative) Urine Nitrate Negative (Negative) Urine Bilirubin 1+ (Negative) Urine Urobilinogen Positive H (Negative) Ur Leukocyte Esterase Negative (Negative) Urine WBC (Auto) Trace(0-5/hpf) (Absent) Urine RBC (Auto) 1+(3-5/hpf) H (Absent) Ur Squamous Epith Cells Present H (Absent) Urine Bacteria Absent (Absent) Urine Glucose Negative (Negative) Assess/Plan/Problems-Billing Assessment: Rodrigue Torres is a 41 yo male with a PMH of cerebral palsy, seizure disorder , and HTN who was admitted for perforated appendix and associated peritionitis and is s/p appendectomy and washout procedure; hospital medicine consult for co- medical management. - Patient Problems (1) Perforated appendicitis Code(s): K35.2 - ACUTE APPENDICITIS WITH GENERALIZED PERITONITIS Comment: With associated peritonitis S/p appendectomy and washout, POD #5 Management per surgery Continue Zosyn; switch to Augmentin as outpatient. (2) Diarrhea Code(s): R19.7 - DIARRHEA, UNSPECIFIED Comment: Resolved Suspect secondary to reintroducing solid foods after being on liquid diet, but may be secondary to antibiotics Not associated with abd pain, nausea, melena. Positive flatus Continue probiotic (3) Tachycardia Code(s): R00.0 - TACHYCARDIA, UNSPECIFIED Comment: Resolved Suspect secondary to pneumonia and post-operative pain Sinus tachycardia on EKG Continue carvedilol (which was previously held perioperatively) Electrolyte replacement as needed (4) Pneumonia Code(s): J18.9 - PNEUMONIA, UNSPECIFIED ORGANISM Comment: Bibasilar atelectasis with concern for consolidation on left on most recent CXR Afebrile overnight, WBC improved. Switch to Augmentin and continue azithromycin Continue incentive spirometry, guaifenesin (5) HTN (hypertension) Code(s): I10 - ESSENTIAL (PRIMARY) HYPERTENSION Comment: Normotensive, continue carvedilol. (6) Seizure disorder Code(s): G40.909 - EPILEPSY, UNSP, NOT INTRACTABLE, WITHOUT STATUS EPILEPTICUS Comment: Continue home carbamazepine. Seizure precautions. (7) DVT prophylaxis Code(s): PBU9467 - Comment: SQ heparin Status and Disposition: Inpatient admission, disposition per surgery. Hospitalist co-medical management.
--- NOTE | 2016-11-17 13:31 | PN ---
Hospitalist Progress Note Patient status reviewed with surgeon, Dr. Matt. Agree that patient is stable for discharge, and patient would like to go home. Surgery to dictate discharge summary - ask that patient f/u with surgery this week. Patient will continue Augmentin for additional 7 days. Patient instructed to also f/u with PCP re: pneumonia and electrolyte abnormalities (hypokalemia, hypocalcemia). Repeat BMP ordered as outpatient. Lap sites and former [place] site appear c/d/i. Plan for d/c to home today with aforementioned follow-up.
== END 2016-11-17 15:27 | disposition home or self-care (01) | DRG 338 ==
LOC: ED 18:01 → SSU 11-12 00:52 → OBSVTOIN 11-12 13:00
PROVIDERS: ADMIT Surgery; ATTEND Surgery
PROC: 0DTJ4ZZ Resection of Appendix, Percutaneous Endoscopic Approach (ICD-10-PCS; principal; 2016-11-12 06:00)
PROC: 0D9670Z Drainage of Stomach with Drainage Device, Via Natural or Artificial Opening (ICD-10-PCS; 2016-11-13)
DX: K35.2 Acute appendicitis with generalized peritonitis (principal); J18.9 Pneumonia, unspecified organism; K91.3 Postprocedural intestinal obstruction; I10 Essential (primary) hypertension; G80.9 Cerebral palsy, unspecified; R19.7 Diarrhea, unspecified; E87.6 Hypokalemia; G40.909 Epilepsy, unspecified, not intractable, without status epilepticus; R00.0 Tachycardia, unspecified
CPT/HCPCS: 36415; 71010; 71020; 74177; 80048; 80053; 81003; 81015; 83605; 83690; 83735; 84100; 84443; 85025; 85610; 85730; 86140; 88304; 93005; 99212; A9270-GY; C1776; G0463; J0456; J0780; J1100; J1170; J1644; J1885; J1940; J2250; J2270; J2405; J2543; J3010; J3480; Q9967